=== PATIENT | female | born 1975 | race Caucasian/White ===

== ENCOUNTER → 2017-04-25 | Outpatient (CLI) | payer OTHER, MEDICAID ==
[~2017-04-25] VITALS: Ht 160 cm; Wt 128.2 kg
[~2017-04-25] MED LIST: CENTRUM ADULTS1 EACH PO; CHILDREN'S ASPI81 M1 PO; CYCLOBENZAPRINE10 M1 PO; NAPROSYN500 M1 PO; ROBAXIN500 MG PO; ULTRAM50 M1 PO
[2017-04-25 10:49] LABS: EOS # 0.1 (0.04-0.40); EOS % 1.7 % (1.0-5.0); HEMATOCRIT 39.6 % (37.0-47.0); HEMOGLOBIN 13.2 g/dL (12.5-16.0); LYMPH# 2.1 (1.50-4.00); MEAN CELL VOLUME 94 fl (78-100); MEAN CORPUSCULAR HEMOGLOBIN 31 pg (27-31); MEAN CORPUSCULAR HGB CONC 33 g/dL (33-37); MEAN PLATELET VOLUME 9.4 fl (7.4-10.4); MONO # 0.4 (0.20-0.80); PLATELET COUNT 342 K/mm3 (130-400); RED BLOOD COUNT 4.23 M/mm3 (4.10-5.30); RED CELL DISTRIBUTION WIDTH 11.9 % (11.5-14.5); WHITE BLOOD COUNT 6.7 K/mm3 (4.8-10.8)
[2017-04-25 11:04] VITALS: BP 120/77
[2017-04-25 11:17] LABS: ALBUMIN 3.9 g/dL (3.5-5.0); BUN/CREATININE RATIO 14.8 (6.0-26.0); POTASSIUM 3.9 mmol/L (3.6-5.0); TOTAL BILIRUBIN 0.7 mg/dL (0.2-1.3); TOTAL PROTEIN 6.7 g/dL (6.3-8.2)
[2017-04-25 12:32] VITALS: BP 142/87
== END ==
LOC: AMSURD 10:07
PROVIDERS: Nurse Practitioner Family
DX: R42 Dizziness and giddiness (principal); R11.0 Nausea; E86.0 Dehydration; G43.909 Migraine, unspecified, not intractable, without status migrainosus
CPT/HCPCS: J0696; J1885; J2405; J7030

== ENCOUNTER → 2023-08-04 | Outpatient (CLI) | payer BC, MEDICAID | LOC: RAD 14:14 | DX: M19.072 Primary osteoarthritis, left ankle and foot (principal) ==